=== PATIENT | female | born 1985 | race Caucasian/White ===

== ENCOUNTER 2018-04-19 15:03 | Emergency (ER) | payer SELFPAY ==
[2018-04-19 17:38] LABS: ADD MAN DIFF? NO
[2018-04-19 17:40] LABS: BASOPHILS % 0.1 % (0.0-2.0); EOSINOPHILS # 0.1 10^3/ul (0.0-0.5); EOSINOPHILS % 1.3 % (0.0-7.0); HEMATOCRIT 39.8 % (37.0-47.0); HEMOGLOBIN 12.9 g/dl (12.0-16.0); LYMPHOCYTES # 1.8 10^3/ul (0.8-2.9); LYMPHOCYTES % 22.8 % (15.0-51.0); MEAN CORPUSCULAR HEMOGLOBIN 29.3 pg (29.0-33.0); MEAN CORPUSCULAR HGB CONC 32.4 g/dl (32.0-37.0); MEAN CORPUSCULAR VOLUME 90.2 fl (82.0-101.0); MEAN PLATELET VOLUME 10.5 fl (7.4-10.4); MONOCYTE # 0.8 10^3/ul (0.3-0.9); MONOCYTES % 10.3 % (0.0-11.0); NEUTROPHIL # 5.1 10^3/ul (1.6-7.5); NEUTROPHILS % 65.2 % (39.0-77.0); PLATELET COUNT 237 10^3/UL (140-415); RED BLOOD COUNT 4.41 10^6/ul (4.20-5.40); RED CELL DISTRIBUTION WIDTH 13.7 % (11.5-14.5)
[2018-04-19 17:40] LABS: WHITE BLOOD COUNT 7.9 10^3/ul (4.8-10.8)
[2018-04-19 17:41] LABS: ADD UMIC YES; UR ASCORBIC ACID NEGATIVE (NEGATIVE); UR BACTERIA MODERATE /HPF (NONE SEEN); UR BILIRUBIN (Dip) NEGATIVE (NEGATIVE); UR BLOOD (Dip) 2+ mg/dL (NEGATIVE); UR CLARITY CLEAR (CLEAR); UR COLOR STRAW (YELLOW); UR GLUCOSE (Dip) NEGATIVE (NEGATIVE); UR KETONES (Dip) NEGATIVE (NEGATIVE); UR LEUKOCYTE ESTERASE (Dip) 2+ Leu/ul (NEGATIVE); UR NITRITE (Dip) NEGATIVE (NEGATIVE); UR RBC 8 /HPF (0-5); UR SPECIFIC GRAVITY (Dip) 1.006 (1.003-1.030); UR TOTAL PROTEIN (Dip) NEGATIVE (NEGATIVE); UR UROBILINOGEN (Dip) NEGATIVE (NEGATIVE); UR WBC 15 /HPF (0-5)
== END 2018-04-19 19:31 | disposition home or self-care (01) ==
LOC: FTE 15:03
DX: O20.9 Hemorrhage in early pregnancy, unspecified (principal); O23.41 Unspecified infection of urinary tract in pregnancy, first trimester; R10.2 Pelvic and perineal pain; Z3A.01 Less than 8 weeks gestation of pregnancy
CPT/HCPCS: 36415; 76801; 76817; 81001; 84702; 85025; 86900; 86901; 87086; 99284-25

== ENCOUNTER 2018-08-30 17:31 | Inpatient (IN) | payer MEDICAID ==
[2018-08-30 18:23] LABS: ADD UMIC YES; UR ASCORBIC ACID NEGATIVE (NEGATIVE); UR BACTERIA MODERATE /HPF (NONE SEEN); UR BILIRUBIN (Dip) NEGATIVE (NEGATIVE); UR BLOOD (Dip) NEGATIVE (NEGATIVE); UR CLARITY CLEAR (CLEAR); UR COLOR STRAW (YELLOW); UR GLUCOSE (Dip) NEGATIVE (NEGATIVE); UR KETONES (Dip) NEGATIVE (NEGATIVE); UR LEUKOCYTE ESTERASE (Dip) 2+ Leu/ul (NEGATIVE); UR NITRITE (Dip) NEGATIVE (NEGATIVE); UR RBC 1 /HPF (0-5); UR SPECIFIC GRAVITY (Dip) 1.004 (1.003-1.030); UR SQUAMOUS EPITHELIAL CELL FEW /HPF (FEW); UR TOTAL PROTEIN (Dip) NEGATIVE (NEGATIVE); UR UROBILINOGEN (Dip) NEGATIVE (NEGATIVE); UR WBC 5 /HPF (0-5)
[2018-08-30] MEDS ORDERED: ACETAMINOPHEN 325 MG TAB PO (19:30)
[2018-08-30] MEDS ORDERED: ONDANSETRON 4 MG INJ IV (19:30)
[2018-08-30 20:48] LABS: ADD MAN DIFF? NO
[2018-08-30 20:50] LABS: WHITE BLOOD COUNT 8.5 10^3/ul (4.8-10.8)
[2018-08-30 20:50] LABS: BASOPHILS % 0.1 % (0.0-2.0); EOSINOPHILS # 0.1 10^3/ul (0.0-0.5); EOSINOPHILS % 0.8 % (0.0-7.0); HEMATOCRIT 38.8 % (37.0-47.0); HEMOGLOBIN 12.5 g/dl (12.0-16.0); LYMPHOCYTES # 1.9 10^3/ul (0.8-2.9); LYMPHOCYTES % 22.4 % (15.0-51.0); MEAN CORPUSCULAR HEMOGLOBIN 29.3 pg (29.0-33.0); MEAN CORPUSCULAR HGB CONC 32.2 g/dl (32.0-37.0); MEAN CORPUSCULAR VOLUME 91.1 fl (82.0-101.0); MEAN PLATELET VOLUME 10.8 fl (7.4-10.4); MONOCYTE # 0.7 10^3/ul (0.3-0.9); MONOCYTES % 7.8 % (0.0-11.0); NEUTROPHIL # 5.8 10^3/ul (1.6-7.5); NEUTROPHILS % 68.5 % (39.0-77.0); PLATELET COUNT 227 10^3/UL (140-415); RED BLOOD COUNT 4.26 10^6/ul (4.20-5.40); RED CELL DISTRIBUTION WIDTH 13.4 % (11.5-14.5)
[2018-08-30] MEDS: DOCUSATE SODIUM 100 MG CAP PO (21:00)
[2018-08-30] MEDS: LACTATED RINGER'S 500 ML IV (21:05)
[2018-08-30 21:06] LABS: INR 0.89; PARTIAL THROMBOPLASTIN TIME 29.5 Sec (23.0-35.0); PROTIME 12.2 Sec (11.9-14.9)
[2018-08-30 21:08] LABS: ALANINE AMINOTRANSFERASE 26 IU/L (13-69); ALBUMIN 3.9 g/dl (3.3-4.9); ALBUMIN/GLOBULIN RATIO 1.08; ALKALINE PHOSPHATASE 89 IU/L (42-121); ANION GAP 12 (5-13); ASPARTATE AMINO TRANSFERASE 22 IU/L (15-46); BILIRUBIN,INDIRECT 0.3 mg/dl (0-1.1); BILIRUBIN,TOTAL 0.3 mg/dl (0.2-1.3); BLOOD UREA NITROGEN 10 mg/dl (7-20); CARBON DIOXIDE 24 mmol/L (21-31); CHLORIDE 103 mmol/L (97-110); CREATININE 0.65 mg/dl (0.44-1.00); Estimated GFR > 60 mL/min (>60); GLUCOSE 81 mg/dl (70-220); POTASSIUM 4.1 mmol/L (3.5-5.1); SODIUM 139 mmol/L (135-144); TOTAL PROTEIN 7.5 g/dl (6.1-8.1)
[2018-08-30] MEDS: LACTATED RINGER'S 1,000 ML IV (21:33)
[2018-08-30] MEDS: MAGNESIUM SULFATE 4 GM/100 ML 100 ML IV (21:42)
[2018-08-30] MEDS: DEXAMETHASONE 4 MG/ML 5 ML INJ IM (21:52)
[2018-08-30] MEDS: AMPICILLIN 2 GM/NS (PMX) 100 ML IV (22:06)
[2018-08-30] MEDS: MAGNESIUM SULFATE 20 GM/500 ML 500 ML IV (22:15)
[2018-08-31 00:58] LABS: MAGNESIUM 3.9 mg/dl (1.7-2.5)
[2018-08-31] MEDS: LACTATED RINGER'S 1,000 ML IV ×2 (03:09→21:22)
[2018-08-31] MEDS: AMPICILLIN 2 GM/NS (PMX) 100 ML IVPB ×2 (04:21→08:57)
[2018-08-31] MEDS: MAGNESIUM SULFATE 20 GM/500 ML 500 ML IV ×3 (05:26→16:17)
[2018-08-31] MEDS: DOCUSATE SODIUM 100 MG CAP PO ×2 (08:56→21:22)
[2018-08-31] MEDS: DEXAMETHASONE 4 MG/ML 5 ML INJ IM ×2 (08:57→21:23)
[2018-08-31 09:03] LABS: MAGNESIUM 4.8 mg/dl (1.7-2.5)
[2018-08-31 13:33] LABS: MAGNESIUM 5.2 mg/dl (1.7-2.5)
[2018-08-31 15:26] LABS: RAPID PLASMA REAGIN NONREACTIVE (NR)
[2018-08-31 22:22] LABS: MAGNESIUM 5.6 mg/dl (1.7-2.5)
[2018-09-01 01:46] LABS: MAGNESIUM 5.7 mg/dl (1.7-2.5)
[2018-09-01] MEDS: MAGNESIUM SULFATE 20 GM/500 ML 500 ML IV ×2 (02:03→10:36)
[2018-09-01 07:28] LABS: MAGNESIUM 5.6 mg/dl (1.7-2.5)
[2018-09-01] MEDS: DOCUSATE SODIUM 100 MG CAP PO ×2 (09:03→21:44)
[2018-09-01] MEDS: DEXAMETHASONE 4 MG/ML 5 ML INJ IM (09:04)
[2018-09-01] MEDS: LACTATED RINGER'S 1,000 ML IV ×2 (10:19→23:27)
[2018-09-02] MEDS: MAGNESIUM SULFATE 20 GM/500 ML 500 ML IV (04:06)
[2018-09-02 10:01] LABS: RUPTURE FETAL MEMBRANES NEGATIVE (NEGATIVE)
[2018-09-02] MEDS: DOCUSATE SODIUM 100 MG CAP PO ×2 (10:55→21:07)
[2018-09-02 11:28] LABS: ADD UMIC NO; UR ASCORBIC ACID NEGATIVE (NEGATIVE); UR BILIRUBIN (Dip) NEGATIVE (NEGATIVE); UR BLOOD (Dip) NEGATIVE (NEGATIVE); UR CLARITY CLEAR (CLEAR); UR COLOR STRAW (YELLOW); UR GLUCOSE (Dip) NEGATIVE (NEGATIVE); UR KETONES (Dip) NEGATIVE (NEGATIVE); UR LEUKOCYTE ESTERASE (Dip) NEGATIVE Leu/ul (NEGATIVE); UR NITRITE (Dip) NEGATIVE (NEGATIVE); UR SPECIFIC GRAVITY (Dip) 1.003 (1.003-1.030); UR TOTAL PROTEIN (Dip) NEGATIVE (NEGATIVE); UR UROBILINOGEN (Dip) NEGATIVE (NEGATIVE)
[2018-09-02] MEDS: LACTATED RINGER'S 1,000 ML IV (13:53)
[2018-09-03] MEDS: DOCUSATE SODIUM 100 MG CAP PO ×2 (09:00→21:47)
[2018-09-04] MEDS: DOCUSATE SODIUM 100 MG CAP PO ×2 (08:53→21:10)
[2018-09-05] MEDS: DOCUSATE SODIUM 100 MG CAP PO ×2 (09:33→21:00)
[2018-09-06] MEDS: DOCUSATE SODIUM 100 MG CAP PO ×2 (09:42→21:00)
[2018-09-07] MEDS: DOCUSATE SODIUM 100 MG CAP PO (08:48)
[2018-09-07] MEDS ORDERED: DIPHTH/TET/ACEL PERTUSS (ADULT) 0.5 ML VIAL IM* (19:00)
[2018-09-08] MEDS: DOCUSATE SODIUM 100 MG CAP PO ×2 (09:00→21:33)
[2018-09-08 09:26] LABS: ADD UMIC YES; UR ASCORBIC ACID NEGATIVE (NEGATIVE); UR BACTERIA MODERATE /HPF (NONE SEEN); UR BILIRUBIN (Dip) NEGATIVE (NEGATIVE); UR BLOOD (Dip) NEGATIVE (NEGATIVE); UR CLARITY SLIGHTLY CLOUDY (CLEAR); UR COLOR STRAW (YELLOW); UR GLUCOSE (Dip) NEGATIVE (NEGATIVE); UR KETONES (Dip) NEGATIVE (NEGATIVE); UR LEUKOCYTE ESTERASE (Dip) 2+ Leu/ul (NEGATIVE); UR NITRITE (Dip) NEGATIVE (NEGATIVE); UR RBC 1 /HPF (0-5); UR SPECIFIC GRAVITY (Dip) 1.002 (1.003-1.030); UR TOTAL PROTEIN (Dip) NEGATIVE (NEGATIVE); UR UROBILINOGEN (Dip) NEGATIVE (NEGATIVE); UR WBC 7 /HPF (0-5)
[2018-09-09] MEDS: DOCUSATE SODIUM 100 MG CAP PO ×2 (09:41→21:10)
[2018-09-09] MEDS: DIPHTH/TET/ACEL PERTUSS (ADULT) 0.5 ML VIAL IM* (19:00)
[2018-09-10] MEDS: DOCUSATE SODIUM 100 MG CAP PO ×2 (09:35→21:00)
[2018-09-10] MEDS: PRENATAL VITAMIN PO (21:50)
[2018-09-10] MEDS: FERROUS SULFATE (EC) 325 MG TAB PO (21:50)
[2018-09-11 11:37] LABS: ADD UMIC NO; UR ASCORBIC ACID NEGATIVE (NEGATIVE); UR BILIRUBIN (Dip) NEGATIVE (NEGATIVE); UR BLOOD (Dip) NEGATIVE (NEGATIVE); UR CLARITY CLEAR (CLEAR); UR COLOR STRAW (YELLOW); UR GLUCOSE (Dip) NEGATIVE (NEGATIVE); UR KETONES (Dip) NEGATIVE (NEGATIVE); UR LEUKOCYTE ESTERASE (Dip) NEGATIVE Leu/ul (NEGATIVE); UR NITRITE (Dip) NEGATIVE (NEGATIVE); UR SPECIFIC GRAVITY (Dip) 1.002 (1.003-1.030); UR TOTAL PROTEIN (Dip) NEGATIVE (NEGATIVE); UR UROBILINOGEN (Dip) NEGATIVE (NEGATIVE)
[2018-09-11] MEDS: DOCUSATE SODIUM 100 MG CAP PO ×2 (11:37→20:32)
[2018-09-11] MEDS: FERROUS SULFATE (EC) 325 MG TAB PO (20:32)
[2018-09-11] MEDS: PRENATAL VITAMIN PO (20:32)
[2018-09-12] MEDS: DOCUSATE SODIUM 100 MG CAP PO ×2 (09:00→21:00)
[2018-09-12] MEDS: PRENATAL VITAMIN PO (21:03)
[2018-09-12] MEDS: FERROUS SULFATE (EC) 325 MG TAB PO (21:03)
[2018-09-13] MEDS: FERROUS SULFATE (EC) 325 MG TAB PO (21:54)
[2018-09-13] MEDS: PRENATAL VITAMIN PO (21:54)
[2018-09-13] MEDS: DOCUSATE SODIUM 100 MG CAP PO (21:55)
[2018-09-14] MEDS: PRENATAL VITAMIN PO (21:12)
[2018-09-14] MEDS: FERROUS SULFATE (EC) 325 MG TAB PO (21:12)
[2018-09-14] MEDS: DOCUSATE SODIUM 100 MG CAP PO (21:13)
[2018-09-15] MEDS: FERROUS SULFATE (EC) 325 MG TAB PO (20:57)
[2018-09-15] MEDS: PRENATAL VITAMIN PO (20:57)
[2018-09-15] MEDS: DOCUSATE SODIUM 100 MG CAP PO (20:57)
[2018-09-16] MEDS: PRENATAL VITAMIN PO (22:00)
[2018-09-16] MEDS: DOCUSATE SODIUM 100 MG CAP PO (22:00)
[2018-09-16] MEDS: FERROUS SULFATE (EC) 325 MG TAB PO (22:00)
[2018-09-16] MEDS: PROGESTERONE 100 MG CAP VAG (22:01)
[2018-09-17] MEDS: DOCUSATE SODIUM 100 MG CAP PO (21:06)
[2018-09-17] MEDS: PRENATAL VITAMIN PO (21:07)
[2018-09-17] MEDS: FERROUS SULFATE (EC) 325 MG TAB PO (21:07)
[2018-09-17] MEDS: PROGESTERONE 100 MG CAP VAG (21:07)
[2018-09-18] MEDS: DOCUSATE SODIUM 100 MG CAP PO (21:20)
[2018-09-18] MEDS: PROGESTERONE 100 MG CAP VAG (21:20)
[2018-09-18] MEDS: FERROUS SULFATE (EC) 325 MG TAB PO (21:20)
[2018-09-18] MEDS: PRENATAL VITAMIN PO (21:20)
[2018-09-19] MEDS: PRENATAL VITAMIN PO (20:58)
[2018-09-19] MEDS: FERROUS SULFATE (EC) 325 MG TAB PO (20:58)
[2018-09-19] MEDS: DOCUSATE SODIUM 100 MG CAP PO (20:58)
[2018-09-19] MEDS: PROGESTERONE 100 MG CAP VAG (20:59)
[2018-09-20] MEDS: PRENATAL VITAMIN PO (21:06)
[2018-09-20] MEDS: FERROUS SULFATE (EC) 325 MG TAB PO (21:06)
[2018-09-20] MEDS: PROGESTERONE 100 MG CAP VAG (21:06)
[2018-09-20] MEDS: DOCUSATE SODIUM 100 MG CAP PO (21:06)
[2018-09-21] MEDS: DOCUSATE SODIUM 100 MG CAP PO (21:09)
[2018-09-21] MEDS: FERROUS SULFATE (EC) 325 MG TAB PO (21:09)
[2018-09-21] MEDS: PRENATAL VITAMIN PO (21:09)
[2018-09-21] MEDS: PROGESTERONE 100 MG CAP VAG (21:09)
[2018-09-22] MEDS: PRENATAL VITAMIN PO (20:50)
[2018-09-22] MEDS: FERROUS SULFATE (EC) 325 MG TAB PO (20:50)
[2018-09-22] MEDS: PROGESTERONE 100 MG CAP VAG (20:50)
[2018-09-22] MEDS: DOCUSATE SODIUM 100 MG CAP PO (20:50)
[2018-09-23] MEDS: PRENATAL VITAMIN PO (21:18)
[2018-09-23] MEDS: PROGESTERONE 100 MG CAP VAG (21:18)
[2018-09-23] MEDS: DOCUSATE SODIUM 100 MG CAP PO (21:18)
[2018-09-23] MEDS: FERROUS SULFATE (EC) 325 MG TAB PO (21:18)
[2018-09-24] MEDS: DEXAMETHASONE 4 MG/ML 1 ML INJ IV ×2 (01:47→13:46)
[2018-09-24] MEDS: DOCUSATE SODIUM 100 MG CAP PO (21:17)
[2018-09-24] MEDS: FERROUS SULFATE (EC) 325 MG TAB PO (21:17)
[2018-09-24] MEDS: PRENATAL VITAMIN PO (21:18)
[2018-09-24] MEDS: PROGESTERONE 100 MG CAP VAG (21:18)
[2018-09-25] MEDS: DEXAMETHASONE 4 MG/ML 1 ML INJ IV ×2 (01:47→14:28)
[2018-09-25] MEDS: DOCUSATE SODIUM 100 MG CAP PO (21:11)
[2018-09-25] MEDS: PRENATAL VITAMIN PO (21:11)
[2018-09-25] MEDS: FERROUS SULFATE (EC) 325 MG TAB PO (21:11)
[2018-09-25] MEDS: PROGESTERONE 100 MG CAP VAG (21:13)
[2018-09-26] MEDS: DEXAMETHASONE 10 MG/ML 1 ML INJ IM (03:37)
== END 2018-09-26 12:53 | disposition left against medical advice (07) | DRG 833 ==
LOC: OBT 17:31 → PP1 08-31 03:28 → L-D 17:33 → OBT 18:50 → L-D 18:50 → PP1 08-31 17:52 → L-D 20:16
DX: O26.873 Cervical shortening, third trimester (principal); O99.212 Obesity complicating pregnancy, second trimester
CPT/HCPCS: 76815; 76817; 76818; 80053; 81001; 81003; 82731; 83735; 84112; 85025; 85610; 85730; 86592; 86850; 86900; 86901; 87086

== ENCOUNTER 2018-11-02 15:51 | Inpatient (IN) | payer MEDICAID ==
[2018-11-02 16:19] LABS: ADD UMIC YES; UR ASCORBIC ACID NEGATIVE (NEGATIVE); UR BACTERIA FEW /HPF (NONE SEEN); UR BILIRUBIN (Dip) NEGATIVE (NEGATIVE); UR BLOOD (Dip) NEGATIVE (NEGATIVE); UR CLARITY SLIGHTLY CLOUDY (CLEAR); UR COLOR YELLOW (YELLOW); UR GLUCOSE (Dip) NEGATIVE (NEGATIVE); UR KETONES (Dip) TRACE mg/dL (NEGATIVE); UR LEUKOCYTE ESTERASE (Dip) 2+ Leu/ul (NEGATIVE); UR NITRITE (Dip) NEGATIVE (NEGATIVE); UR RBC 1 /HPF (0-5); UR SPECIFIC GRAVITY (Dip) 1.008 (1.003-1.030); UR SQUAMOUS EPITHELIAL CELL MODERATE /HPF (FEW); UR TOTAL PROTEIN (Dip) NEGATIVE (NEGATIVE); UR UROBILINOGEN (Dip) NEGATIVE (NEGATIVE); UR WBC 4 /HPF (0-5)
[2018-11-02 16:46] LABS: ADD MAN DIFF? NO
[2018-11-02 16:49] LABS: WHITE BLOOD COUNT 8.5 10^3/ul (4.8-10.8)
[2018-11-02 16:49] LABS: BASOPHILS % 0.1 % (0.0-2.0); EOSINOPHILS % 0.5 % (0.0-7.0); HEMATOCRIT 37.5 % (37.0-47.0); HEMOGLOBIN 12.2 g/dl (12.0-16.0); LYMPHOCYTES # 1.3 10^3/ul (0.8-2.9); LYMPHOCYTES % 15.4 % (15.0-51.0); MEAN CORPUSCULAR HEMOGLOBIN 28.9 pg (29.0-33.0); MEAN CORPUSCULAR HGB CONC 32.5 g/dl (32.0-37.0); MEAN CORPUSCULAR VOLUME 88.9 fl (82.0-101.0); MEAN PLATELET VOLUME 10.6 fl (7.4-10.4); MONOCYTE # 0.7 10^3/ul (0.3-0.9); MONOCYTES % 7.7 % (0.0-11.0); NEUTROPHIL # 6.4 10^3/ul (1.6-7.5); NEUTROPHILS % 75.8 % (39.0-77.0); PLATELET COUNT 221 10^3/UL (140-415); RED BLOOD COUNT 4.22 10^6/ul (4.20-5.40); RED CELL DISTRIBUTION WIDTH 14.2 % (11.5-14.5)
[2018-11-02 17:23] LABS: ALANINE AMINOTRANSFERASE 18 IU/L (13-69); ALKALINE PHOSPHATASE 157 IU/L (42-121); ANION GAP 8 (5-13); ASPARTATE AMINO TRANSFERASE 18 IU/L (15-46); BILIRUBIN,INDIRECT 0.3 mg/dl (0-1.1); BILIRUBIN,TOTAL 0.3 mg/dl (0.2-1.3); BLOOD UREA NITROGEN 7 mg/dl (7-20); CALCIUM 9.7 mg/dl (8.4-10.2); CARBON DIOXIDE 22 mmol/L (21-31); CHLORIDE 108 mmol/L (97-110); CREATININE 0.73 mg/dl (0.44-1.00); Estimated GFR > 60 mL/min (>60); GLUCOSE 128 mg/dl (70-220); POTASSIUM 3.9 mmol/L (3.5-5.1); SODIUM 138 mmol/L (135-144); URIC ACID 4.6 mg/dl (3.1-7.9)
[2018-11-02 17:24] LABS: ALBUMIN 3.4 g/dl (3.3-4.9); ALBUMIN/GLOBULIN RATIO 1.03; TOTAL PROTEIN 6.7 g/dl (6.1-8.1)
[2018-11-03] MEDS: FERROUS SULFATE (EC) 325 MG TAB PO (09:11)
[2018-11-03] MEDS: PRENATAL VITAMIN PO (09:11)
[2018-11-03 17:56] LABS: COLLECTION PERIOD 24 hrs
[2018-11-03 18:20] LABS: CREATININE,URINE RANDOM 34.61 mg/dl (20-320)
[2018-11-03 18:39] LABS: COLLECTION PERIOD 24 hrs; VOLUME 4100 ml/24hrs; VOLUME 4100 mls
[2018-11-03 18:41] LABS: SCRET 0.73 mg/dl (0.44-1.00)
[2018-11-04] MEDS: PRENATAL VITAMIN PO (08:07)
[2018-11-04] MEDS: FERROUS SULFATE (EC) 325 MG TAB PO (08:07)
== END 2018-11-04 16:00 | disposition home or self-care (01) | DRG 832 ==
LOC: OBT 15:51 → L-D 15:51 → OBT 17:36 → L-D 17:36
DX: O13.3 Gestational [pregnancy-induced] hypertension without significant proteinuria, third trimester (principal); O26.873 Cervical shortening, third trimester; Z3A.35 35 weeks gestation of pregnancy
CPT/HCPCS: 76818; 80053; 81001; 82575; 84156; 84560; 85025

== ENCOUNTER 2018-11-07 20:11 | Outpatient (CLI) | payer MEDICAID ==
[2018-11-07 21:30] LABS: ADD MAN DIFF? NO
[2018-11-07 21:32] LABS: WHITE BLOOD COUNT 7.2 10^3/ul (4.8-10.8)
[2018-11-07 21:32] LABS: BASOPHILS % 0.3 % (0.0-2.0); EOSINOPHILS # 0.1 10^3/ul (0.0-0.5); EOSINOPHILS % 1.1 % (0.0-7.0); HEMATOCRIT 36.9 % (37.0-47.0); HEMOGLOBIN 12.1 g/dl (12.0-16.0); LYMPHOCYTES # 1.4 10^3/ul (0.8-2.9); LYMPHOCYTES % 19.8 % (15.0-51.0); MEAN CORPUSCULAR HEMOGLOBIN 29.4 pg (29.0-33.0); MEAN CORPUSCULAR HGB CONC 32.8 g/dl (32.0-37.0); MEAN CORPUSCULAR VOLUME 89.6 fl (82.0-101.0); MEAN PLATELET VOLUME 11.5 fl (7.4-10.4); MONOCYTE # 0.7 10^3/ul (0.3-0.9); MONOCYTES % 10.3 % (0.0-11.0); NEUTROPHIL # 4.9 10^3/ul (1.6-7.5); NEUTROPHILS % 68.2 % (39.0-77.0); PLATELET COUNT 188 10^3/UL (140-415); RED BLOOD COUNT 4.12 10^6/ul (4.20-5.40)
[2018-11-07 21:37] LABS: ADD UMIC YES; UR ASCORBIC ACID NEGATIVE (NEGATIVE); UR BACTERIA FEW /HPF (NONE SEEN); UR BILIRUBIN (Dip) NEGATIVE (NEGATIVE); UR BLOOD (Dip) NEGATIVE (NEGATIVE); UR CLARITY CLEAR (CLEAR); UR COLOR YELLOW (YELLOW); UR GLUCOSE (Dip) NEGATIVE (NEGATIVE); UR KETONES (Dip) NEGATIVE (NEGATIVE); UR LEUKOCYTE ESTERASE (Dip) TRACE Leu/ul (NEGATIVE); UR NITRITE (Dip) NEGATIVE (NEGATIVE); UR RBC 1 /HPF (0-5); UR SPECIFIC GRAVITY (Dip) 1.006 (1.003-1.030); UR TOTAL PROTEIN (Dip) NEGATIVE (NEGATIVE); UR UROBILINOGEN (Dip) NEGATIVE (NEGATIVE); UR WBC 1 /HPF (0-5)
[2018-11-07 21:53] LABS: ALANINE AMINOTRANSFERASE 25 IU/L (13-69); ALBUMIN 3.5 g/dl (3.3-4.9); ALKALINE PHOSPHATASE 162 IU/L (42-121); ANION GAP 7 (5-13); ASPARTATE AMINO TRANSFERASE 22 IU/L (15-46); BILIRUBIN,INDIRECT 0.5 mg/dl (0-1.1); BILIRUBIN,TOTAL 0.5 mg/dl (0.2-1.3); BLOOD UREA NITROGEN 10 mg/dl (7-20); CALCIUM 9.4 mg/dl (8.4-10.2); CARBON DIOXIDE 21 mmol/L (21-31); CHLORIDE 110 mmol/L (97-110); CREATININE 0.66 mg/dl (0.44-1.00); Estimated GFR > 60 mL/min (>60); GLUCOSE 84 mg/dl (70-220); SODIUM 138 mmol/L (135-144); TOTAL PROTEIN 6.4 g/dl (6.1-8.1); URIC ACID 4.8 mg/dl (3.1-7.9)
== END 2018-11-08 00:22 | disposition home or self-care (01) ==
LOC: OBT 20:11 → L-D 20:13
DX: O13.3 Gestational [pregnancy-induced] hypertension without significant proteinuria, third trimester (principal); Z3A.36 36 weeks gestation of pregnancy
CPT/HCPCS: 76818; 80053; 81001; 84560; 85025

== ENCOUNTER 2018-11-11 15:10 | Inpatient (IN) | payer MEDICAID ==
[2018-11-11] MEDS: LACTATED RINGER'S 1,000 ML IV* (16:16)
[2018-11-11] MEDS ORDERED: AL HYDROX/MG HYDROX/SIMETH 30 ML CUP PO (17:30)
[2018-11-11] MEDS ORDERED: ACETAMINOPHEN 325 MG TAB PO (17:30)
[2018-11-11] MEDS: LACTATED RINGER'S 1,000 ML IV (18:46)
[2018-11-12] MEDS: LACTATED RINGER'S 1,000 ML IV ×3 (01:05→22:43)
[2018-11-12] MEDS ORDERED: CARBOPROST 250 MCG INJ IM (21:30)
[2018-11-12] MEDS ORDERED: BUTORPHANOL 2 MG INJ IV (21:30)
[2018-11-12] MEDS ORDERED: METHYLERGONOVINE 0.2 MG INJ IM (21:30)
[2018-11-12] MEDS ORDERED: IBUPROFEN 600 MG TAB PO (21:30)
[2018-11-12] MEDS ORDERED: OXYTOCIN 30 UNITS/LR 500 ML IV (21:30)
[2018-11-12 22:35] LABS: ADD MAN DIFF? NO
[2018-11-12 22:39] LABS: BASOPHILS % 0.1 % (0.0-2.0); EOSINOPHILS # 0.1 10^3/ul (0.0-0.5); EOSINOPHILS % 0.7 % (0.0-7.0); HEMATOCRIT 37.6 % (37.0-47.0); HEMOGLOBIN 12.1 g/dl (12.0-16.0); LYMPHOCYTES # 1.4 10^3/ul (0.8-2.9); LYMPHOCYTES % 21.2 % (15.0-51.0); MEAN CORPUSCULAR HEMOGLOBIN 29.2 pg (29.0-33.0); MEAN CORPUSCULAR HGB CONC 32.2 g/dl (32.0-37.0); MEAN CORPUSCULAR VOLUME 90.8 fl (82.0-101.0); MEAN PLATELET VOLUME 10.8 fl (7.4-10.4); MONOCYTE # 0.7 10^3/ul (0.3-0.9); MONOCYTES % 10.1 % (0.0-11.0); NEUTROPHIL # 4.6 10^3/ul (1.6-7.5); NEUTROPHILS % 67.6 % (39.0-77.0); PLATELET COUNT 220 10^3/UL (140-415); RED BLOOD COUNT 4.14 10^6/ul (4.20-5.40); RED CELL DISTRIBUTION WIDTH 14.5 % (11.5-14.5)
[2018-11-12 22:39] LABS: WHITE BLOOD COUNT 6.8 10^3/ul (4.8-10.8)
[2018-11-12] MEDS: PRENATAL VITAMIN PO (22:52)
[2018-11-12 22:59] LABS: INR 0.89; PARTIAL THROMBOPLASTIN TIME 29.4 Sec (23.0-35.0); PROTIME 12.1 Sec (11.9-14.9); PT RATIO 0.9
[2018-11-13] MEDS: OXYTOCIN 30 UNITS/LR 500 ML IV (00:46)
[2018-11-13] MEDS: MISOPROSTOL 50 MCG CAPSULE PO (01:08)
[2018-11-13] MEDS: LACTATED RINGER'S 1,000 ML IV ×4 (01:24→18:11)
[2018-11-13 05:22] LABS: HEPATITIS B SURFACE ANTIGEN NEGATIVE (NEGATIVE)
[2018-11-13] MEDS: PRENATAL VITAMIN PO (09:00)
[2018-11-13 20:43] LABS: RAPID PLASMA REAGIN NONREACTIVE (NR)
[2018-11-14] MEDS: LACTATED RINGER'S 1,000 ML IV ×3 (02:18→17:50)
[2018-11-14] MEDS: OXYTOCIN 30 UNITS/LR 500 ML IV ×3 (02:29→20:39)
[2018-11-14] MEDS: LIDOCAINE 1% (MPF) 30 ML INJ INJ (19:28)
[2018-11-14] MEDS: BUTORPHANOL 2 MG INJ IV (19:28)
[2018-11-14] MEDS: MISOPROSTOL 200 MCG TAB PR (19:53)
[2018-11-14] MEDS ORDERED: DIPHENHYDRAMINE 50 MG INJ IV (22:00)
[2018-11-14] MEDS ORDERED: OXYTOCIN 30 UNITS/LR 500 ML IV (22:00)
[2018-11-14] MEDS ORDERED: METHYLERGONOVINE 0.2 MG INJ IM (22:00)
[2018-11-14] MEDS ORDERED: MISOPROSTOL 200 MCG TAB PR (22:00)
[2018-11-14] MEDS ORDERED: SENNA/DOCUSATE NA (8.6MG/50MG) TAB PO (22:00)
[2018-11-14] MEDS ORDERED: ZOLPIDEM 5 MG TAB PO (22:00)
[2018-11-14] MEDS ORDERED: DEXTROSE 5%-LR 1,000 ML IV (22:00)
[2018-11-14] MEDS ORDERED: ACETAMINOPHEN 325 MG TAB PO (22:00)
[2018-11-14] MEDS ORDERED: MAGNESIUM HYDROXIDE 30ML CUP PO (22:00)
[2018-11-14] MEDS ORDERED: OXYCODONE/ASPIRIN (4.88/325) TAB PO (22:00)
[2018-11-14] MEDS ORDERED: CARBOPROST 250 MCG INJ IM (22:00)
[2018-11-14] MEDS ORDERED: DIBUCAINE 1% 30 GM OINT TOP (22:00)
[2018-11-14] MEDS ORDERED: ONDANSETRON 4 MG INJ IV (22:00)
[2018-11-15] MEDS: BENZOCAINE 20% 56 ML SPRAY TOP (00:27)
[2018-11-15] MEDS: IBUPROFEN 600 MG TAB PO ×4 (00:27→17:50)
[2018-11-15] MEDS: LANOLIN HPA 1 PKT TOP (00:27)
[2018-11-15] MEDS: WITCH HAZEL/GLYCERIN PAD PR (00:27)
[2018-11-15] MEDS: LACTATED RINGER'S 1,000 ML IV* (00:43)
[2018-11-15 08:09] LABS: ADD MAN DIFF? NO
[2018-11-15 08:19] LABS: WHITE BLOOD COUNT 11.5 10^3/ul (4.8-10.8)
[2018-11-15 08:19] LABS: BASOPHILS % 0.1 % (0.0-2.0); EOSINOPHILS % 0.3 % (0.0-7.0); HEMATOCRIT 31.6 % (37.0-47.0); HEMOGLOBIN 10.4 g/dl (12.0-16.0); LYMPHOCYTES # 1.6 10^3/ul (0.8-2.9); LYMPHOCYTES % 14.2 % (15.0-51.0); MEAN CORPUSCULAR HEMOGLOBIN 29.5 pg (29.0-33.0); MEAN CORPUSCULAR HGB CONC 32.9 g/dl (32.0-37.0); MEAN CORPUSCULAR VOLUME 89.8 fl (82.0-101.0); MEAN PLATELET VOLUME 10.9 fl (7.4-10.4); MONOCYTE # 1.3 10^3/ul (0.3-0.9); MONOCYTES % 11.5 % (0.0-11.0); NEUTROPHIL # 8.4 10^3/ul (1.6-7.5); NEUTROPHILS % 73.6 % (39.0-77.0); PLATELET COUNT 198 10^3/UL (140-415); RED BLOOD COUNT 3.52 10^6/ul (4.20-5.40)
[2018-11-15] MEDS: DOCUSATE SODIUM 100 MG CAP PO ×2 (09:03→21:41)
[2018-11-16] MEDS: IBUPROFEN 600 MG TAB PO ×3 (00:36→12:33)
[2018-11-16] MEDS: MEASLES,MUMPS,RUBELLA VACCINE INJ SC* (09:00)
[2018-11-16] MEDS: DOCUSATE SODIUM 100 MG CAP PO (09:05)
[2018-11-16] MEDS: DIPHTH/TET/ACEL PERTUSS (ADULT) 0.5 ML VIAL IM* (13:49)
== END 2018-11-16 18:42 | disposition home or self-care (01) | DRG 807 ==
LOC: OBT 15:10 → PP1 11-14 22:02 → L-D 15:11 → OBT 16:55 → L-D 16:55
PROVIDERS: Obstetrics & Gynecology
PROC: 10D07Z8 Extraction of Products of Conception, Other, Via Natural or Artificial Opening (ICD-10-PCS; principal; 2018-11-14)
PROC: 3E033VJ Introduction of Other Hormone into Peripheral Vein, Percutaneous Approach (ICD-10-PCS; 2018-11-14)
DX: O13.4 Gestational [pregnancy-induced] hypertension without significant proteinuria, complicating childbirth (principal); Z37.0 Single live birth; O76 Abnormality in fetal heart rate and rhythm complicating labor and delivery; O69.81X0 Labor and delivery complicated by cord around neck, without compression, not applicable or unspecified; Z3A.37 37 weeks gestation of pregnancy
CPT/HCPCS: 36415; 76815; 76818; 85025; 85610; 85730; 86592; 86850; 86900; 86901; 87340; 90715; 96360; 99464